=== PATIENT | male | born 1995 | race African-American/Black ===

== ENCOUNTER 2019-12-20 23:13 | Emergency (ER) | payer OTHER ==
--- NOTE | 2019-12-20 23:22 | ED.PDOC ---
History of Present Illness - General Chief Complaint: GI Problem Stated Complaint: Nausea, vomiting, decreased mental status Time Seen by Provider: 12/20/19 23:19 Information Source: patient, RN notes reviewed, Vital Signs reviewed, EMS notes reviewed, EMS Exam Limitations: no limitations - History of Present Illness Initial Comments: This is a 24-year-old male presenting to the emergency department for nausea, vomiting and decreased mental status onset this evening. He was brought in by ambulance after he was found unconscious by his friends after drinking 7-8 beers. Denies any liquor or drug use. On EMS arrival, he was somnolent but arousable. In route he was given a liter of fluid as well as 4 of Zofran. His nausea is markedly improved on arrival. The patient tested positive for COVID- 19 approximately 3 to 4 weeks ago. He completed a two-week quarantine at home and has been back at work for several days. He denies any chest pain, shortness of breath, fevers, or any upper respiratory symptoms. He states he was completely back to normal prior to tonight's episode. He denies any daily alcohol use. There was no seizure activity noted. His D stick was 105 in route with EMS. Review of Systems - Review of Systems Constitutional: Denies: chills, fever EENTM: Denies: ear pain, nose congestion, throat pain, throat swelling Respiratory: Denies: cough, short of breath, wheezing Cardiology: Denies: chest pain, edema, syncope Gastrointestinal/Abdominal: States: nausea, vomiting. Denies: abdominal pain, constipation, diarrhea Genitourinary: Denies: dysuria, hematuria Musculoskeletal: Denies: joint pain, muscle stiffness, neck pain Skin: Denies: lesions, rash Neurological: States: other - Confusion. Denies: headache, numbness, paresthesia, seizure, weakness Endocrine: States: no symptoms reported Hematologic/Lymphatic: States: no symptoms reported Family Medical History - Family History Mother Family History: Unknown Living Status: Unknown Physical Exam - Physical Exam General Appearance: Alert, Comfortable, No apparent distress Eyes, Ears, Nose, Throat Exam: PERRL/EOMI, normal ENT inspection, other - No evidence of head injury/trauma Neck: full range of motion, supple Respiratory: lungs clear, no respiratory distress Cardiovascular/Chest: normal peripheral pulses, regular rate, rhythm, no edema, no gallop, no JVD, no murmur Peripheral Pulses: No deficit Gastrointestinal/Abdominal: non tender, soft Back Exam: no CVA tenderness, no vertebral tenderness Extremity: non-tender, normal inspection 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 Patient feeling better. Tolerating p.o. Abdomen remains benign. Patient is easily arousable to voice and light touch. Answers questions appropriately. No respiratory distress Discussed lab findings and plan for discharge. Recommended decreasing alcohol intake. Will discharge home with antiemetics. Strict warnings given to return the emergency room for worsening vomiting, abdominal pain, fever, vomiting blood, blood in stool, or any other concerns. DDX: Alcohol intoxication, dehydration, pancreatitis, hepatitis, gastroenteritis MDM: Patient presenting with nausea/vomiting after drinking alcohol today. Patient reportedly had 7-8 beers today, no liquor or drug use. Heart rate in the 90s, he does have a slight leukocytosis. He has no clear infectious source, no fever, low suspicion for sepsis at this time. Do not feel blood cultures/lactate are indicated at this time. He had a diagnosis of COVID-19 several weeks ago but completed a 2-week quarantine and had been back in work and asymptomatic for several days. I strongly suspect this is all related to his alcohol intake today. Will discharge home with symptom control, strict warnings given to return for worsening. Zach Pulido DO [id number] 12/21/19 00:21 - Results/Orders Results/Orders: Laboratory Tests 12/20/19 12/20/19 12/20/19 23:30 23:30 23:30 WBC 18.9 H RBC 4.76 Hgb 13.6 L Hct 40.1 L MCV 84.3 MCH 28.7 MCHC 34.0 RDW 12.9 Plt Count 298 MPV 7.7 Absolute Neuts (auto) 17.10 H Absolute Lymphs (auto) 1.10 Absolute Monos (auto) 0.70 Absolute Eos (auto) 0.00 Absolute Basos (auto) 0.00 Neutrophils % 90.2 H Lymphocytes % 5.7 L Monocytes % 3.8 Eosinophils % 0.1 L Basophils % 0.2 Sodium 142 Potassium 3.2 L Chloride 110 Carbon Dioxide 23 Anion Gap 12.2 BUN 11 Creatinine 0.79 BUN/Creatinine Ratio 13.9 Random Glucose 83 Serum Osmolality 281.7 Calcium 8.0 L Total Bilirubin 1.2 H Direct Bilirubin 0.2 Indirect Bilirubin 1.0 H AST 20 ALT 15 Alkaline Phosphatase 43 Serum Total Protein 6.5 Albumin 4.2 Lipase 30 Ethyl Alcohol 143.00 H* Departure - Departure Clinical Impression: Nausea & vomiting, Alcohol intoxication Disposition: Discharge to Home or Self Care Condition: Good Departure Forms: ED Discharge - Pt. Copy, Patient Portal Self Enrollment Instructions: Nausea and Vomiting, Adult (DC) Diet: resume usual diet Activity: increase activity as tolerated Prescriptions: Ondansetron Odt [Zofran ODT] 4 - 8 mg PO Q6H PRN #12 tab PRN Reason: Nausea Home Medications: Ambulatory Orders Ondansetron Odt [Zofran ODT] 4 - 8 mg PO Q6H PRN #12 tab 12/21/19
[2019-12-20] MEDS: SODIUM CHLORIDE 0.9% 1000ML 1,000 ML IVS PRN (23:35)
[2019-12-20] MEDS: SODIUM CHLORIDE 0.9% (FLUSH) 10 ML SYG IV PRN (23:36)
[2019-12-21 00:43] VITALS: BP 111/50; TEMP 98.5; O2SAT 100
== END 2019-12-21 00:42 | disposition home or self-care (01) ==
LOC: ER 23:13
DX: R11.2 Nausea with vomiting, unspecified (principal); F10.129 Alcohol abuse with intoxication, unspecified; Z86.19 Personal history of other infectious and parasitic diseases
CPT/HCPCS: 80048; 80076; 80320; 83690; 85025; J7030